=== PATIENT | female | born 2005 | race Caucasian/White ===

== ENCOUNTER 2023-10-07 12:41 | Observation (INO) | payer OTHER ==
[2023-10-07] VITALS (15 sets, daily range): BP systolic 101–140; BP diastolic 46–80
[~2023-10-07] VITALS: Ht 165.1 cm; Wt 73.5 kg
[2023-10-07 13:21] LABS: Source, Urine Clean Catch
[2023-10-07 13:29] LABS: Appearance, Urine Clear (Clear); Bilirubin, Urine Neg (Neg); Blood, Urine 5+ (Neg); Color, Urine Yellow (P-Yellow); Glucose Qualitative, Urine Neg (Neg); Ketones, Urine 1+ (Neg); Leukocyte Esterase, Urine Neg (Neg); Nitrite, Urine Neg (Neg); Protein, Urine Neg (Neg); Urobilinogen, Urine NORM (Normal)
[2023-10-07 14:26] LABS: BASOPHILS ABSOLUTE AUTO 0.04 K/mm3 (0.00-0.23); BASOPHILS PERCENT AUTO 0 % (0-2); EOSINOPHILS ABSOLUTE AUTO 0.05 K/mm3 (0.00-0.68); EOSINOPHILS PERCENT AUTO 0 % (0-6); Hematocrit 39.2 % (33.0-51.0); Hemoglobin 12.9 g/dL (11.5-16.0); IMMATURE GRAN ABSOLUTE AUTO 0.07 K/mm3 (0.00-0.10); IMMATURE GRAN PERCENT AUTO 0 % (0-1); LYMPHOCYTES ABSOLUTE AUTO 1.95 K/mm3 (0.84-5.20); LYMPHOCYTES PERCENT AUTO 11 % (21-46); MONOCYTES ABSOLUTE AUTO 0.81 K/mm3 (0.16-1.47); MONOCYTES PERCENT AUTO 5 % (4-13); Mean Corpuscular HGB 28.4 pg (26.0-34.0); Mean Corpuscular HGB Conc 32.9 g/dL (31.5-36.5); Mean Corpuscular Volume 86 fL (80-100); Mean Platelet Volume 10.4 fL (9.1-12.4); NEUTROPHILS ABSOLUTE AUTO 14.28 K/mm3 (1.96-9.15); NEUTROPHILS PERCENT AUTO 83 % (41-73); Platelet Count 358 K/mm3 (150-400); RDW Coefficient Variation 13.2 % (11.7-14.2); RDW Standard Deviation 41.7 fL (35.1-46.3); Red Blood Cell Count 4.55 M/mm3 (3.80-5.20)
[2023-10-07 14:36] LABS: Bacteria Many /hpf; Mucus Light (0-Heavy); Squamous Epithelial Cells Mod /hpf (Few)
[2023-10-07] MEDS ORDERED: CeFAZolin Sodium 2,000 MG in NS 100 ML IV SCH (14:50)
[2023-10-07] MEDS ORDERED: Lactated Ringer's 1,000 ML IV SCH ×2 (14:50→17:05)
[2023-10-07 15:06] LABS: Bun/Creatinine Ratio 18.8 (12.0-20.0); Calcium, Blood 9.4 mg/dL (8.5-10.1); Creatinine, Blood 0.69 mg/dL (0.40-1.00); Potassium, Blood 3.4 mmol/L (3.5-5.5)
[2023-10-07] MEDS ORDERED: Bupivacaine 0.5% HCl 5 MG/ML 30MLVIAL ONE (15:17)
--- NOTE | 2023-10-07 15:28 | NUR ---
History, Chart, Medications and Allergies reviewed before start of procedure. Ambulatory in Day Surgery. Surgical site prepped with 2% Chlorhexidine cloth wipe. Lungs clear T/O to Auscultation. Last ate at 0800 this morning.
[2023-10-07] MEDS ORDERED: Sugammadex Sodium 200 MG/2ML SDV (100 MG/ML) ONE (15:41)
[2023-10-07] MEDS ORDERED: FentaNYL Citrate 50 MCG/ML 2 ML Injection ONE ×3 (15:41→17:42)
[2023-10-07] MEDS ORDERED: Rocuronium Bromide 10 MG/ML 5ML Injection IV ONE (15:41)
[2023-10-07] MEDS ORDERED: Dexamethasone Sod Phos 10 MG/ML 1ML VIAL ONE (15:41)
[2023-10-07] MEDS ORDERED: propofoL 20 ML IV ONE ×2 (15:41→15:42)
[2023-10-07] MEDS ORDERED: Ondansetron HCl 2 MG / ML 2ML Vial ONE (15:41)
[2023-10-07] MEDS ORDERED: Phenylephrine HCl 100 MCG/ML-NS 10MLSYR (1MG/10ML) ONE (15:54)
[2023-10-07] MEDS ORDERED: Ketorolac Tromethamine 30mg Vial ONE (16:04)
[2023-10-07] MEDS ORDERED: Methylergonovine Maleate 0.2MG / ML 1ML Amp ONE (16:46)
[2023-10-07] MEDS ORDERED: Ibuprofen 400 MG Tab PO PRN (17:05)
[2023-10-07] MEDS ORDERED: Acetaminophen 325 MG TABLET PO PRN (17:05)
[2023-10-07] MEDS ORDERED: Ondansetron HCl 2 MG / ML 2ML Vial IV PRN (17:05)
[2023-10-07] MEDS ORDERED: OxyCODONE HCL 5 MG TAB PO PRN (17:05)
[2023-10-07] MEDS ORDERED: FentaNYL Citrate 50 MCG/ML 2 ML Injection IV PRN (17:10)
[2023-10-07] MEDS ORDERED: HYDROcodone 10-APAP 325 TAB PO PRN (17:10)
[2023-10-07] MEDS ORDERED: DiphenhydrAMINE HCL 25 MG Cap PO PRN (17:10)
[2023-10-07] MEDS ORDERED: Ketorolac Tromethamine 30mg Vial IV SCH (18:00)
--- NOTE | 2023-10-07 18:15 | NUR ---
POST OP PT ARRIVAL S/P LAP ECTOPIC REMOVAL. ABLE TO STAND AND TRANSFER FROM GURNEY TO BED. POST OP VSS AND IN PROGRESS. PT MEDICATED FOR PAIN IN PACU PRIOR TO ARRIVAL. LAP SITES X3 TO ABD WITH STERI STRIPS ARE CDI. MINIMAL VAG BLEEDING NOTED ON NAKIA PAD. IVF INFUSING PER ORDERS. SLOWLY SIPPING ON CLEARS. ORIENTED TO ROOM AND CALL LIGHT. FAMILY AT SIDE. CALL LIGHT WITHIN REACH.
[2023-10-07] MEDS ORDERED: Percocet 5-3251 EACH PO (19:19)
[2023-10-07] MEDS ORDERED: IBU800 M1 PO (19:20)
--- NOTE | 2023-10-07 20:43 | NUR ---
ASSESSMENT/ DISCHARGE SUMMARY PT A&O X4, AMB IND TO THE BATHROOM. PT TOLERAING PO INTAKE, DENIES ANY N/V. PT HAS VOIDED POST OP AND HAD MINIMAL BLOOD IN URINE, HAS SOME CLOTS. LUNGS SOUND CLEAR, RR EVEN AND UNLABORED. X3 LAP SITES, STERI STRIPS IN PLACE, C/D/I. WENT OVER DISCHARGE INSTRUCTIONS WITH PATIENT AND FAMILY. ALL QUESTIONS ANSWERED FROM PATIENT AND FAMILY. INSTRUCTIONS AND EDUCATION ALL UNDERSTOOD. IV TAKEN OUT AND ALL BELONGINGS SENT WITH PATIENT. PT WHEELED OUT IN W/C BY FAMILY MEMEBERS.
== END 2023-10-07 20:23 | disposition home or self-care (01) ==
LOC: ER 12:41 → SURS 12:42
PROVIDERS: Physician Assistant; ADMIT Obstetrics & Gynecology
PROC: 10T24ZZ Resection of Products of Conception, Ectopic, Percutaneous Endoscopic Approach (ICD-10-PCS; principal; 2023-10-07 15:00)
DX: O00.102 Left tubal pregnancy without intrauterine pregnancy (principal)
CPT/HCPCS: 36416; 76801; 76817; 80048; 81001; 84702; 85025; 86850; 86900; 86901; 86923; 87086; 88305; 99285-25; J0690; J1100; J1885; J2210; J2371; J2405; J2704; J3010; J7120

== ENCOUNTER → 2023-11-02 | Outpatient (CLI) | payer OTHER ==
[~2023-11-02] MED LIST: ACET325 PO; IBU800 M1 PO; LEVO750 PO; Nitrofurantoin100 M1 PO; Percocet 5-3251 EACH PO
== END | disposition home or self-care (01) ==
LOC: LAB SHORT 09:30 → LAB 09:30
DX: R31.9 Hematuria, unspecified (principal); R82.90 Unspecified abnormal findings in urine
CPT/HCPCS: 87077; 87086; 87186